=== PATIENT | female | born 1985 | race Caucasian/White ===

== ENCOUNTER 2017-09-02 06:31 | Inpatient (IN) | payer OTHER ==
[2017-09-02] MEDS ORDERED: MISOPROSTOL 200 MCG TAB PR PRN (07:01)
[2017-09-02] MEDS ORDERED: AMPICILLIN SODIUM 2 GM in NS 100 ML IV ONE (07:01)
[2017-09-02] MEDS ORDERED: LIDOCAINE 1% 300 MG/30 ML SDV SC PRN (07:01)
[2017-09-02] MEDS ORDERED: LR 1,000 ML IV PRN (07:01)
[2017-09-02] MEDS ORDERED: IBUPROFEN 600 MG TAB PO PRN (07:01)
[2017-09-02] MEDS ORDERED: EPSOM SALT 454 GM TP PRN (07:01)
[2017-09-02] MEDS ORDERED: OLIVE OIL 118 ML BTL MISC PRN (07:01)
[2017-09-02] MEDS ORDERED: OXYTOCIN/RINGERS LACTATE 1,000 ML IV PRN (07:01)
[2017-09-02] MEDS ORDERED: TERBUTALINE SULFATE 1 MG/ML VIAL IV PRN (07:01)
[2017-09-02] MEDS ORDERED: AMPICILLIN SODIUM 1 GM in NS 100 ML IV SCH (07:15)
[2017-09-02 08:09] LABS: PLATELET COUNT 152 10^3/uL (150-400)
--- NOTE | 2017-09-02 08:14 | PDGENHP ---
History and Physical History and Physical: CARE: [facility] HPI: Patient is a 31 yo with IUP@ 40-4wks that presents to L&D with complaints of contractions since yesterday at 1400. She states they increased to every 7 minutes throughout the night but have bene every 5 minutes since 0500. She denies any LOF, VB. She reports +FM. EDC: 08/29/17 which is based on LMP: 11/22/16 which is known and consistent with Ultrasound at 7 weeks. Her is complicated by: migraines, parvo nonimmune, fam hx of spina bifida, abnormal 1hr GTT- 3hr NL HISTORY: Previous OB history: G1 Past medical history: migraines Past surgical history: none Medications: PNV, DHA Allergies (list reaction): NKDA LABS: Rh: A+ ABS: Neg Rubella: Immune HbsAg: NR HIV: NR VDRL: NR 1hr: 156, 3hr GTT NL GC: Neg Chlamydia: Neg Pap: Normal GBS: + BMI: (prepreg)21 PHYSICAL EXAM: Constitutional: WN, A&Ox3 HEENT: normocephalic atraumatic, supple Heart: RRR, no murmur Chest: CTA-B Abdomen: Soft, nontender, gravid SVE: 5/70/-2 (per RN) Extremities: no edema, negative homans sign Neuro: grossly normal Psych: normal affect assessment: Reassuring FHTs, baseline 120 +accels, no decels, moderate variability Contractions: toco q 4-7 Assessment: 1) 31yoG1 with IUP@ 40-4wks 2) early labor 3) GBS + 4) Cat 1 FHR tracing Plan: 1) Admit to L&D 2) pain management PRN 3) IV abx 4) IA/hydrotherapy 5) anticipate
[2017-09-02] MEDS: AMPICILLIN SODIUM 1 GM in NS 100 ML IV SCH ×3 (12:15→22:58)
--- NOTE | 2017-09-02 12:50 | OBPROG ---
Labor Progress Note Assessment/Plan: Assessment: 31yo with IUP@40-4wks Active labor GBS + reassuring FHT's Plan: cont IV abx expectant management pain management PRN anticipate 09/02/17 12:46 Subjective/Intrapartum Course: 09/02/17 12:50 Pt doing well, she is breathing through contractions. she is not requesting pain medication at this time, but feels as her pain is starting to get to the point where she might need something. She is going to try N20 first once pain relief is needed. She is planning hydrotherapy at this time. Objective: 09/02/17 07:45 Patient ABO/Rh A POSITIVE 09/02/17 07:45 - SVE Dilation (cm): 6 Effacement (%): 90 Station: -1 Membranes: AROM Amniotic Fluid Color: Clear - Contraction Pattern Assessment Current Contraction Pattern: Regular - FHR Assessment Smith FHR (bpm): 115 FHR Pattern Variability: Moderate FHR Category: 1 - Procedures Non-surgical Procedures: Amniotomy Oxytocin Orders Assessment - Pre-Induction/Augmentation Assessment Gestational Age: 40 week(s) and 4 day(s) ICD10 Worksheet Patient Problems: Problems Problem Status Onset Labor and delivery, indication for care Acute Positive GBS test Acute - ICD10 Problem Qualifiers (1) Labor and delivery, indication for care (2) Positive GBS test
[2017-09-02] MEDS ORDERED: BUPIVACAINE 0.25% 30 ML SDV ONE (14:44)
[2017-09-02] MEDS ORDERED: PHENYLEPHRINE HCL 100 MCG/ML SYR ONE (14:45)
[2017-09-02] MEDS ORDERED: fentaNYL 100 MCG/2 ML INJ ONE (14:45)
--- NOTE | 2017-09-02 15:04 | OBPROG ---
Labor Progress Note Assessment/Plan: Assessment: 31yo with IUP@40-4wks Active labor GBS + reassuring FHT's Plan: cont IV abx expectant management using N20 currently and pt requesting DESTINEY anticipate 09/02/17 15:01 Subjective/Intrapartum Course: 09/02/17 12:50 Pt doing well, she is breathing through contractions. she is not requesting pain medication at this time, but feels as her pain is starting to get to the point where she might need something. She is going to try N20 first once pain relief is needed. She is planning hydrotherapy at this time. 09/02/17 15:02 Pt doing well, breathing through contractions, using N20 but requesting DESTINEY at this time. FOB at BS and supportive. Objective: 09/02/17 07:45 Patient ABO/Rh A POSITIVE 09/02/17 07:45 - SVE Dilation (cm): 6 Effacement (%): 80 Station: -1 Membranes: AROM Amniotic Fluid Color: Clear - Contraction Pattern Assessment Current Contraction Pattern: Regular - FHR Assessment Smith FHR (bpm): 115 FHR Pattern Variability: Moderate FHR Category: 1 - Procedures Non-surgical Procedures: Amniotomy Oxytocin Orders Assessment - Pre-Induction/Augmentation Assessment Gestational Age: 40 week(s) and 4 day(s) ICD10 Worksheet Patient Problems: Problems Problem Status Onset Labor and delivery, indication for care Acute Positive GBS test Acute - ICD10 Problem Qualifiers (1) Labor and delivery, indication for care (2) Positive GBS test
[2017-09-02] MEDS ORDERED: PHENYLEPHRINE HCL 100 MCG/ML SYR IVP PRN (15:31)
[2017-09-02] MEDS ORDERED: ONDANSETRON 4 MG/2 ML VIAL IVP PRN (15:31)
[2017-09-02] MEDS ORDERED: fentaNYL 200 MCG, BUPIVACAINE 0.5% 20 ML in NS 100 ML EP SCH (16:00)
[2017-09-02] MEDS ORDERED: LR 500 ML IV SCH (16:00)
[2017-09-02] MEDS ORDERED: fentaNYL 2MCG/ML/BUP 0.1% RTU 100 ML EP SCH (16:00)
--- NOTE | 2017-09-02 17:02 | PREANESOB ---
Obstetric Pre-Anesthesia Info - General Info Proposed Procedure: Labor and delivery. : 1 Para: 0 KADI: 08/29/17 Gestational Age: 40 week(s) and 4 day(s) - Info Status: Postmature Monitors: External FHR Baseline (bpm): 120 FHR Pattern: Reassuring - Labor Status Cervical Dilation per last OB SVE: 6 Station per last OB SVE: -1 Amniotic Fluid Color: Clear Indications for Labor Analgesia: Pain Control Labor Epidural: Proposed Anesthesia ROS: Negative. Allergies/Adverse Reactions: Allergy/AdvReac Type Severity Reaction Status Date / Time No Known Allergies Allergy Unverified 09/02/17 06:39 Visit Medications: Generic Name Dose Route Start Last Admin Trade Name Freq PRN Reason Stop Dose Admin Diphenhydramine HCl 25 - 50 mg 09/02/17 15:31 Benadryl Injection IVP 03/01/18 15:30 Q6HRS PRN Itching Lactated Ringer's 1,000 mls @ 0 mls/hr 09/02/17 07:01 09/02/17 07:57 Lr IV 09/03/17 07:00 1,000 mls PRN PRN Administration SEE PROTOCOL CONDITIONS Protocol Per Protocol Oxytocin/Lactated Ringer's 1,000 mls @ 125 mls/hr 09/02/17 07:01 Pitocin 20 Units/Lr (Premix) IV PRN PRN Post bleeding Ampicillin Sodium 1 gm/ Sodium 100 mls @ 200 mls/hr 09/02/17 11:00 09/02/17 16:00 Chloride IV 10/02/17 10:59 100 mls Q4H RUBY Administration Protocol Lactated Ringer's 500 mls @ 0 mls/hr 09/02/17 16:00 Lr IV 03/01/18 15:59 CONT RUBY As Directed Fentanyl 200 mcg/ Bupivacaine 100 mls @ 0 mls/hr 09/02/17 16:00 HCl 20 ml/ Sodium Chloride EP 09/12/17 15:59 CONT RUBY Protocol As Directed Ibuprofen 600 mg 09/02/17 07:01 Motrin PO ONCE PRN post , pain Lidocaine HCl 300 mg 09/02/17 07:01 Lidocaine Hcl 1% SC 03/01/18 07:00 ONCE PRN episiotomy Magnesium Sulfate 454 gm 09/02/17 07:01 Epsom Salt TP 03/01/18 07:00 Q1H PRN perineal discomfort Misoprostol 800 - 1,000 mcg 09/02/17 07:01 Cytotec NJ ONCE PRN Vaginal Atony/Bleeding Hamer Oil 118 ml 09/02/17 07:01 Sweet Oil MISC 03/01/18 07:00 ONCE PRN perineal massage Ondansetron HCl 4 mg 09/02/17 15:31 Zofran IVP 09/03/17 15:30 Q4HRS PRN Nausea/Vomiting, Can't Take PO Phenylephrine HCl 100 mcg 09/02/17 15:31 Neosynephrine IVP 03/01/18 15:30 .Q2M PRN Hypotension Terbutaline Sulfate 0.25 mg 09/02/17 07:01 Brethine IV 03/01/18 07:00 ONCE PRN Tachysystole Discontinued Medications Generic Name Dose Route Start Last Admin Trade Name Freq PRN Reason Stop Dose Admin Bupivacaine HCl Confirm 09/02/17 14:44 Sensorcaine 0.25% Sdv Administered 09/02/17 14:45 Dose 30 ml .ROUTE .STK-MED ONE Fentanyl Confirm 09/02/17 14:45 Sublimaze Administered 09/02/17 14:46 Dose 100 mcg .ROUTE .STK-MED ONE Ampicillin Sodium 2 gm/ Sodium 110 mls @ 220 mls/hr 09/02/17 07:01 09/02/17 07:56 Chloride IV 09/02/17 07:30 110 mls ONCE ONE Administration Protocol Phenylephrine HCl Confirm 09/02/17 14:45 Neosynephrine Administered 09/02/17 14:46 Dose 1,000 mcg .ROUTE .STK-MED ONE - Anesthesia History Response to Local Anesthetics: Normal Anesthesia & Operative History: No Prior Problems Family Anesthesia History: Negative - Social History Substance Use/Abuse: Denies - Vital Signs Blood Pressure: 128/74 Heart Rate: 77 Height/Weight (Nursing): Height 162.56 cm Weight 67.132 kg - Focused Exam Neck exam: FROM Mallampati Score: Class 1 Mouth exam: normal dental/mouth exam Pulmonary: no respiratory distress Cardiovascular: regular rate and rhythym Labs: 09/02/17 07:45 Patient ABO/Rh A POSITIVE 09/02/17 07:45 - Plan Anesthetic Plan: DESTINEY Consent Signed and on Chart: Yes Patient/Guardian Understands and Agrees to Plan: Yes Urgent/Emergent Case: Misha fields completed preop but documented later for safe timely pt care
--- NOTE | 2017-09-02 17:03 | POSTANESTH ---
Post Anesthetic Evaluation Cardiovascular Status: Normal, Stable Respiratory Status: Normal, Stable, Similar to Pre-op Cond. Level of Consciousness/Mental Status: Can Participate in Eval, Alert and Oriented Pain Control: Adequate, Prn Tx Ordered Nausea/Vomiting Control: Adequate, Prn Tx Ordered Complications Possibly Related to Anesthesia: None Noted
--- NOTE | 2017-09-02 17:46 | OBPROG ---
Labor Progress Note Assessment/Plan: Assessment: 31yo with IUP@40-4wks Active labor GBS + reassuring FHT's Plan: cont IV abx expectant management anticipate Subjective/Intrapartum Course: 09/02/17 12:50 Pt doing well, she is breathing through contractions. she is not requesting pain medication at this time, but feels as her pain is starting to get to the point where she might need something. She is going to try N20 first once pain relief is needed. She is planning hydrotherapy at this time. 09/02/17 15:02 Pt doing well, breathing through contractions, using N20 but requesting DESTINEY at this time. FOB at BS and supportive. Objective: 09/02/17 07:45 Patient ABO/Rh A POSITIVE 09/02/17 07:45 Temp Pulse Resp BP Pulse Ox 77 128/74 H 09/02/17 17:02 09/02/17 17:02 - SVE Dilation (cm): 9 Effacement (%): 90 Station: 0 Membranes: AROM Amniotic Fluid Color: Clear - Contraction Pattern Assessment Current Contraction Pattern: Regular - Procedures Non-surgical Procedures: Amniotomy Oxytocin Orders Assessment - Pre-Induction/Augmentation Assessment Gestational Age: 40 week(s) and 4 day(s) ICD10 Worksheet Patient Problems: Problems Problem Status Onset Labor and delivery, indication for care Acute Positive GBS test Acute - ICD10 Problem Qualifiers (1) Labor and delivery, indication for care (2) Positive GBS test
[2017-09-02] MEDS ORDERED: SIMETHICONE 80 MG TAB CHEW PO PRN (19:15)
[2017-09-02] MEDS ORDERED: HYDROCODONE/APAP 5/325 TAB PO PRN (19:15)
[2017-09-02] MEDS ORDERED: HYDROCORTISONE 0.5% CREAM TP PRN (19:15)
--- NOTE | 2017-09-02 19:19 | OBDEL ---
Info Type: Vaginal Presentation at Delivery: Vertex L&D Analgesia/Anesthesia Type: Epidural GBS+: Yes Antibiotic Used for + GBS: Ampicillin Intrapartum Medications: Generic Name Dose Route Start Last Admin Trade Name Freq PRN Reason Stop Dose Admin Lactated Ringer's 1,000 mls @ 0 mls/hr 09/02/17 07:01 09/02/17 07:57 Lr IV 09/03/17 07:00 1,000 mls PRN PRN Administration SEE PROTOCOL CONDITIONS Protocol Per Protocol Ampicillin Sodium 1 gm/ Sodium 100 mls @ 200 mls/hr 09/02/17 11:00 09/02/17 16:00 Chloride IV 10/02/17 10:59 100 mls Q4H RUBY Administration Protocol Discontinued Medications Generic Name Dose Route Start Last Admin Trade Name Fresigifredo PRN Reason Stop Dose Admin Ampicillin Sodium 2 gm/ Sodium 110 mls @ 220 mls/hr 09/02/17 07:01 09/02/17 07:56 Chloride IV 09/02/17 07:30 110 mls ONCE ONE Administration Protocol - Hospital Course Intrapartum: 09/02/17 12:50 Pt doing well, she is breathing through contractions. she is not requesting pain medication at this time, but feels as her pain is starting to get to the point where she might need something. She is going to try N20 first once pain relief is needed. She is planning hydrotherapy at this time. 09/02/17 15:02 Pt doing well, breathing through contractions, using N20 but requesting DESTINEY at this time. FOB at BS and supportive. Indications for Delivery: Spontaneous Labor Vaginal Delivery - Delivery Provider Delivery Physician/CNM: Berenice Banks - Labor and Delivery Onset of Contractions Date: 09/01/17 Onset of Contractions Time: 23:00 Rupture of Membranes Date: 09/02/17 Rupture of Membranes Time: 12:41 Rupture of Membranes Type: Artificial Amniotic Fluid Color: Clear Dilation Complete Date: 09/02/17 Dilation Complete Time: 17:45 Placenta Delivery Date: 09/02/17 Placenta Delivery Time: 18:56 Total Hours of Labor: 19 Non-surgical Procedures: Amniotomy Laceration: 2nd Degree Repair: 3-0, Vicryl Vaginal Sponge Count Correct: Yes Vaginal Needle Count Correct: Yes Vaginal Sweep Performed: Yes EBL: 300 Delivery Events: Nuchal Cord Delivery Comment: delivered HILDA without complications. baby to mothers chest. delayed cord clamping x 3 min, then clamped x2 and cut. baby and mom bonding. Data KADI: 08/29/17 Gestational Age: 40 week(s) and 4 day(s) Smith Delivery Date: 09/02/17 Delivery Time: 18:49 Sex of Infant: Female Score (1 Min): 8 Score (5 Min): 9 ICD10 Worksheet Patient Problems: Problems Problem Status Onset Labor and delivery, indication for care Acute Nuchal cord, single gestation Acute Positive GBS test Acute (spontaneous vaginal delivery) Acute Second degree perineal laceration during delivery Acute - ICD10 Problem Qualifiers (1) Labor and delivery, indication for care (2) Positive GBS test (3) (spontaneous vaginal delivery) (4) Second degree perineal laceration during delivery (5) Nuchal cord, single gestation
[2017-09-03] MEDS: ACETAMINOPHEN 325 MG TAB PO SCH ×4 (00:45→18:02)
[2017-09-03] MEDS: IBUPROFEN 600 MG TAB PO SCH ×4 (03:55→22:00)
--- NOTE | 2017-09-03 07:45 | OBPP ---
Progress Note Assessment/Plan: Assessment: PPD1 s/p . Doing great, routine cares. Likely home tomorrow vs Wednesday - delivered 1899. GBS positive, did receive adequate abx. Rh positive, Rubella immune. JM Subjective/ Course: Candis is doing great this AM - Pain well controlled. Baby doing great, no issues. Planning on potentially home tomorrow due to GBS positive status. Objective: 09/03/17 06:00 Patient ABO/Rh A POSITIVE 09/02/17 07:45 Temp Pulse Resp BP Pulse Ox 36.5 C 61 16 104/51 L 95 09/03/17 00:45 09/03/17 00:45 09/03/17 00:45 09/03/17 00:45 09/03/17 00:45 Uterine Position/Fundal Height: At Umbilicus Uterine Tone: Firm
[2017-09-03] MEDS: DOCUSATE SODIUM 100 MG CAP PO PRN (10:33)
[2017-09-04] MEDS: ACETAMINOPHEN 325 MG TAB PO SCH ×2 (01:42→09:44)
[2017-09-04] MEDS: IBUPROFEN 600 MG TAB PO SCH ×2 (03:51→10:52)
[2017-09-04] MEDS: DOCUSATE SODIUM 100 MG CAP PO PRN (09:21)
[2017-09-04 09:42] VITALS: BP 120/71
--- NOTE | 2017-09-04 10:09 | OBGCSDC ---
General Delivery Information - General Info : 1 Para: 1 Abortions: 0 Type: Vaginal L&D Analgesia/Anesthesia Type: Epidural Admission Date: 09/02/17 Labs: Patient ABO/Rh A POSITIVE 09/02/17 07:45 Hct 38.0 % (38.0-47.0) 09/03/17 04:00 - Hospital Course Intrapartum: 09/02/17 12:50 Pt doing well, she is breathing through contractions. she is not requesting pain medication at this time, but feels as her pain is starting to get to the point where she might need something. She is going to try N20 first once pain relief is needed. She is planning hydrotherapy at this time. 09/02/17 15:02 Pt doing well, breathing through contractions, using N20 but requesting DESTINEY at this time. FOB at BS and supportive. : Candis is doing great this AM - Pain well controlled. Baby doing great, no issues. Planning on potentially home tomorrow due to GBS positive status. 09/04/17 10:08 S) Pt doing well, reports min pain and bleeding. she is ambulating and voiding without difficulty. She is . She desires discharge home today. O) VSS, afebrile constitutional: WNWF, A&Ox3 HEENT: normocephalic, atraumatic, supple Heart: RRR, No murmur Chest: CTA-B Abdomen: Soft, nontender Uterus: Firm at U-2 Lochia: Minimal rubra Perineum: Intact, healing well Extremities: Trace edema, and negative Ирина's sign Neuro: Grossly normal A) 31-year-old S/P PPD#2 P) Discharge home today Continue Pelvic rest x6wks Discussed danger signs (infection, preeclampsia, depression, heavy bleeding, etc ) RTO in 2/4/6 weeks Vaginal - Delivery Provider Delivery Physician/CNM: Berenice Banks - Diagnosis Rupture of Membranes Type: Artificial Amniotic Fluid Color: Clear Laceration: 2nd Degree Repair: 3-0, Vicryl Delivery Events: Nuchal Cord - Procedures Non-surgical Procedures: Amniotomy - Delivery Non-surgical Procedures: Amniotomy EBL: 300 Data KADI: 08/29/17 Gestational Age: 40 week(s) and 6 day(s) Smith Delivery Date: 09/02/17 Delivery Time: 18:49 Sex of Infant: Female Weight (gm): 3340 g Score (1 Min): 8 Score (5 Min): 9 Discharge Information - Discharge Information Prescriptions: Ibuprofen [Motrin (*)] 600 mg PO Q6H #60 tab Condition: Good
== END 2017-09-04 14:10 | disposition home or self-care (01) | DRG 775 ==
LOC: FLD 06:31 → FOB 09-03 00:16
PROVIDERS: ADMIT Hospitalist; ATTEND Hospitalist
DX: O99.824 Streptococcus B carrier state complicating childbirth (principal); Z37.0 Single live birth; O70.1 Second degree perineal laceration during delivery; O69.82X0 Labor and delivery complicated by other cord entanglement, without compression, not applicable or unspecified; Z3A.40 40 weeks gestation of pregnancy
CPT/HCPCS: J0290; J2370; J2590; J3010

== ENCOUNTER → 2017-10-15 | Outpatient (CLI) | payer OTHER | LOC: FLACT 10:50 | PROVIDERS: ATTEND Obstetrics & Gynecology | DX: Z39.1 Encounter for care and examination of lactating mother (principal) | CPT/HCPCS: G0463 ==